=== PATIENT | female | born 1975 | race Hispanic/Latino ===

== ENCOUNTER 2018-07-13 09:50 | Outpatient (CLI) | payer BC | END 2018-07-13 09:51 | disposition home or self-care (01) | LOC: BICMAMMO 09:50 | PROVIDERS: ATTEND Family Medicine | DX: Z12.31 Encounter for screening mammogram for malignant neoplasm of breast (principal) | CPT/HCPCS: 77063; 77067 ==

== ENCOUNTER 2020-04-28 14:22 | Outpatient (CLI) | payer BC ==
--- NOTE | 2020-04-28 15:11 | MMO ---
Right Breast MAMMO Unilat Diag [facility] RT+[facility]. CLINICAL HISTORY: Patient is 45 years old and is seen for diagnostic exam. The patient has no family history of breast cancer. The patient has no personal history of cancer. VIEWS: The views performed were: right craniocaudal with tomosynthesis; right craniocaudal spot compression with tomosynthesis; and right mediolateral with tomosynthesis. FILMS COMPARED: The present examination has been compared to prior imaging studies performed at [facility] on 07/21/2016, 07/13/2018, 04/23/2020 and 04/28/2020. This study has been interpreted with the assistance of computer-aided detection. MAMMOGRAM FINDINGS: The tiny nodular density on the right CC view does not fully disappear on compression but is not seen on ML view or US. IMPRESSION: FINDING IN THE RIGHT BREAST IS PROBABLY BENIGN. FOLLOW-UP IN 6 MONTHS IS RECOMMENDED. THE RESULTS OF THIS EXAM WERE SENT TO THE PATIENT. ACR BI-RADS Category 3 - Probably benign finding - short interval follow-up suggested. [facility] will notify the patient of the need for additional imaging services. MAMMOGRAPHY NOTE: 1. A negative mammogram report should not delay a biopsy if a dominant of clinically suspicious mass is present. 2. Approximately 10% to 15% of breast cancers are not detected by mammography. 3. Adenosis and dense breasts may obscure an underlying neoplasm. Reported by: ARVIND PACK MD Electonically Signed: [id number]
--- NOTE | 2020-04-28 15:23 | ULT ---
RIGHT BREAST ULTRASOUND: HISTORY: Abnormal mammogram. FINDINGS: Sonographic evaluation of the central portions of the right breast including the 3 and 2 o'clock posi tions demonstrates no abnormality to correspond to the mammographic finding. IMPRESSION: BIRADS category 3 - probably benign findings. A followup right diagnostic mammogram is recommended i n 6 months. POS: OFF
== END 2020-04-28 14:23 | disposition home or self-care (01) ==
LOC: BICMAMMO 14:22
PROVIDERS: ATTEND Family Medicine
DX: R92.2 Inconclusive mammogram (principal)
CPT/HCPCS: G0279

== ENCOUNTER 2022-08-13 11:41 | Outpatient (CLI) | payer OTHER | END 2022-08-13 11:42 | disposition home or self-care (01) | LOC: BICMAMMO 11:41 | PROVIDERS: ATTEND Family Medicine | DX: Z12.31 Encounter for screening mammogram for malignant neoplasm of breast (principal) | CPT/HCPCS: 77063; 77067 ==

== ENCOUNTER 2025-05-14 14:01 | Outpatient (CLI) | payer BC | END 2025-05-14 14:02 | disposition home or self-care (01) | LOC: BICMAMMO 14:01 | PROVIDERS: ATTEND Family Medicine | DX: Z12.31 Encounter for screening mammogram for malignant neoplasm of breast (principal) | CPT/HCPCS: 77063; 77067 ==